=== PATIENT | female | born 1995 | race Caucasian/White ===

== ENCOUNTER 2018-05-20 20:55 | Emergency (ER) | payer MEDICAID, OTHER ==
[~2018-05-20] VITALS: Ht 162.6 cm; Wt 65.3 kg
[2018-05-20 21:08] VITALS: Ht 162.6 cm; Wt 65.3 kg
[2018-05-21] MEDS ORDERED: ACETAMINOPHEN 325 MG TAB PO STA (00:06)
[2018-05-21] MEDS ORDERED: SOD CHLORIDE 0.9% 1,000 ML IV STA (00:06)
[2018-05-21] MEDS ORDERED: CEFTRIAXONE 1 GM/50 ML (PMX) 50 ML IVPB ONE (03:00)
[2018-05-21] MEDS ORDERED: CEPH-443 PO (03:03)
--- NOTE | 2018-05-21 03:11 | ERD ---
ER Documentation Chief Complaint Chief Complaint vag bleed with clots; cramps; back pain today; 5wks HPI This is a 23-year-old female at approximately 5 weeks gestation presents to the ED complaining of worsening vaginal bleeding times 1 day. Patient's last menstrual cycle was April 15, 2018. She states she is currently 5 weeks . She reports worsening vaginal bleeding and blood clots. She reports lower suprapubic abdominal cramping as well. Denies any urinary symptoms. Denies any nausea, vomiting. Denies any fevers. Denies any back pain. No other symptoms. ROS All systems reviewed and are negative except as per history of present illness. Medications Home Meds Active Scripts Cephalexin* (Keflex*) 500 Mg Capsule, 500 MG PO BID for 7 Days, #14 CAP Prov:URMILA JEAN PA-C 05/21/18 Allergies Allergies: Coded Allergies: No Known Drug Allergies (Verified Allergy, Unknown, 05/20/18) PMhx/Soc Medical and Surgical Hx: pt denies Medical Hx, pt denies Surgical Hx History of Surgery: No Anesthesia Reaction: No Hx Neurological Disorder: No Hx Respiratory Disorders: No Hx Cardiac Disorders: No Hx Psychiatric Problems: No Hx Miscellaneous Medical Probl: No Hx Alcohol Use: No Hx Substance Use: No Hx Tobacco Use: No Smoking Status: Never smoker Physical Exam Vitals Vital Signs Date Temp Pulse Resp B/P (MAP) Pulse Ox O2 O2 Flow FiO2 Time Delivery Rate 05/20/18 100.7 99 20 129/69 99 21:08 (89) Physical Exam Const: No acute distress Head: Atraumatic Eyes: Normal Conjunctiva ENT: Normal External Ears, Nose and Mouth. Neck: Full range of motion. No meningismus. Resp: Clear to auscultation bilaterally Cardio: Regular rate and rhythm, no murmurs Abd: Soft, + mild suprapubic tenderness to palpation., non distended. No rebound, no guarding. Normal bowel sounds Skin: No petechiae or rashes Back: No midline or flank tenderness Ext: No cyanosis, or edema Neur: Awake and alert Psych: Normal Mood and Affect Result Diagram: 05/21/18 0021 05/21/18 0021 Results 24 hrs Laboratory Tests Test 05/21/18 00:21 White Blood Count 7.8 10^3/ul Red Blood Count 4.53 10^6/ul Hemoglobin 13.3 g/dl Hematocrit 38.9 % Mean Corpuscular Volume 85.9 fl Mean Corpuscular Hemoglobin 29.4 pg Mean Corpuscular Hemoglobin Concent 34.2 g/dl Red Cell Distribution Width 13.0 % Platelet Count 276 10^3/UL Mean Platelet Volume 10.2 fl Immature Granulocytes % 0.400 % Neutrophils % 60.2 % Lymphocytes % 31.8 % Monocytes % 5.1 % Eosinophils % 2.1 % Basophils % 0.4 % Nucleated Red Blood Cells % 0.0 /100WBC Immature Granulocytes # 0.030 10^3/ul Neutrophils # 4.7 10^3/ul Lymphocytes # 2.5 10^3/ul Monocytes # 0.4 10^3/ul Eosinophils # 0.2 10^3/ul Basophils # 0.0 10^3/ul Nucleated Red Blood Cells # 0.0 10^3/ul Urine Color RED Urine Clarity SLIGHTLY CLOUDY Urine pH 7.0 Urine Specific [place] 1.008 Urine Ketones NEGATIVE mg/dL Urine Nitrite NEGATIVE mg/dL Urine Bilirubin NEGATIVE mg/dL Urine Urobilinogen NEGATIVE mg/dL Urine Leukocyte Esterase 3+ Shane/ul Urine Microscopic RBC > 182 /HPF Urine Microscopic WBC 68 /HPF Urine Squamous Epithelial Cells FEW /HPF Urine Bacteria FEW /HPF Urine Hemoglobin 3+ mg/dL Urine Glucose NEGATIVE mg/dL Urine Total Protein 1+ mg/dl Sodium Level 141 mmol/L Potassium Level 4.2 mmol/L Chloride Level 105 mmol/L Carbon Dioxide Level 25 mmol/L Anion Gap 11 Blood Urea Nitrogen 6 mg/dl Creatinine 0.57 mg/dl Est Glomerular Filtrat Rate mL/min > 60 mL/min Glucose Level 105 mg/dl Calcium Level 10.8 mg/dl Total Bilirubin 0.6 mg/dl Direct Bilirubin 0.00 mg/dl Indirect Bilirubin 0.6 mg/dl Aspartate Amino Transf (AST/SGOT) 26 IU/L Alanine Aminotransferase (ALT/SGPT) 41 IU/L Alkaline Phosphatase 72 IU/L Total Protein 8.4 g/dl Albumin 4.8 g/dl Globulin 3.60 g/dl Albumin/Globulin Ratio 1.33 Beta HCG, Quantitative 3.1 mIU/ml Current Medications Medications Dose Sig/Ivan Start Time Status Last (Trade) Ordered Route PRN Stop Time Admin Dose Reason Admin Sodium 1,000 ml @ Q1H STAT 4/11/19 DC 05/21/18 Chloride 1,000 mls/hr IV 00:06 00:57 05/21/18 01:05 650 mg ONCE STAT 05/21/18 DC 05/21/18 Acetaminophen PO 00:06 00:57 (Tylenol 05/21/18 00:07 Tab) Ceftriaxone 50 ml @ ONCE ONCE 05/21/18 Sodium 100 mls/hr IVPB 03:00 05/21/18 03:29 Procedures/MDM LABS CBC: no e/o of systemic infection or severe anemia CMP: no e/o severe acidosis, alkalosis, renal failure, diabetic ketoacidosis, liver disease Urine: 3+ leukocytosis, materia, pyuria consistent with UTI. Ucx: pending beta hc.1 Blood type: a+ DIAGNOSTIC IMAGING: PROCEDURE: US OB including transvaginal scanning. CLINICAL INDICATION: patient with vaginal bleeding TECHNIQUE: Transabdominal and transvaginal views of the pelvis are available for review. Transvaginal scanning was needed for better evaluation of the endometrial stripe and endometrial contents as well as improved evaluation of the adnexa. COMPARISON: No prior studies are available for comparison. FINDINGS: The endometrial stripe measures 5.7 mm in diameter. No intrauterine gestational sac is seen. The right ovary measures 3.4 x 1.7 x 2.1 cm and the left ovary measures 2.7 x 1.4 x 1.8 cm. No ovarian cysts or masses are seen. Color and pulsed wave Doppler flow both ovaries was obtained. A small amount of free fluid was seen in the cul-de-sac. IMPRESSION: No intrauterine gestational sac is seen. Correlate with beta HCG level. Ectopic is not excluded. Small amount of free fluid. ED COURSE: The patient was given IV fluids, Zofran, IV Rocephin The medication was well tolerated and the patient had market improvement in symptoms. The patient remained stable throughout ED course. MEDICAL DECISION MAKING: Pt presents with vaginal bleeding in first trimester. The differential diagnosis includes threatened , incomplete/complete , missed , ectopic and less likely gestational trophoblastic disease and choriocarcinoma. Patient has a fever here, remaining vital signs are normal. Labs without any signs of dehydration or significant anemia. US as above showed no intrauterine gestational sac, with the beta hCG of 3.1. Patient likely had a spontaneous . I discussed results with pt. She was given a copy of her results and told to follow up with customer advisor in 48 hours. UA as above shows UTI. She was given 1 g of IV Rocephin here and discharged home with oral antibiotics. Patient shows no signs of sepsis or urosepsis. Strict return precautions discussed. PRESCRIPTIONS: Keflex SPECIALIST FOLLOW UP RECOMMENDED: None Patient has been advised to follow up with primary care in 1-2 days. Departure Diagnosis: Primary Impression: Spontaneous Additional Impression: UTI (urinary tract infection) Urinary tract infection type: acute cystitis Hematuria presence: without hematuria Qualified Codes: N30.00 - Acute cystitis without hematuria Condition: Stable Patient Instructions: Miscarriage, Spontaneous (Completed) Referrals: [facility] YOU HAVE RECEIVED A MEDICAL SCREENING EXAM AND THE RESULTS INDICATE THAT YOU DO NOT HAVE A CONDITION THAT REQUIRES URGENT TREATMENT IN THE EMERGENCY DEPARTMENT. FURTHER EVALUATION AND TREATMENT OF YOUR CONDITION CAN WAIT UNTIL YOU ARE SEEN IN YOUR DOCTORS OFFICE WITHIN THE NEXT 1-2 DAYS. IT IS YOUR RESPONSIBILITY TO MAKE AN APPOINTMENT FOR FOLOW-UP CARE. IF YOU HAVE A PRIMARY DOCTOR --you should call your primary doctor and schedule an appointment IF YOU DO NOT HAVE A PRIMARY DOCTOR YOU CAN CALL OUR PHYSICIAN REFERRAL HOTLINE AT IF YOU CAN NOT AFFORD TO SEE A PHYSICIAN YOU CAN CHOSE FROM THE FOLLOWING [facility] [address] [facility]. [facility] [address] [facility] [facility] [address] [facility] [facility] [address] [facility] [facility] [address] [facility]. [facility]. [address] [facility]. [facility] YOU HAVE RECEIVED A MEDICAL SCREENING EXAM AND THE RESULTS INDICATE THAT YOU DO NOT HAVE A CONDITION THAT REQUIRES URGENT TREATMENT IN THE EMERGENCY DEPARTMENT. FURTHER EVALUATION AND TREATMENT OF YOUR CONDITION CAN WAIT UNTIL YOU ARE SEEN IN YOUR DOCTORS OFFICE WITHIN THE NEXT 1-2 DAYS. IT IS YOUR RESPONSIBILITY TO MAKE AN APPOINTMENT FOR FOLOW-UP CARE. IF YOU HAVE A PRIMARY DOCTOR --you should call your primary doctor and schedule and appointment IF YOU DO NOT HAVE A PRIMARY DOCTOR YOU CAN CALL OUR PHYSICIAN REFERRAL HOTLINE AT . IF YOU CAN NOT AFFORD TO SEE A PHYSICIAN YOU CAN CHOSE FROM THE FOLLOWING [facility] INSTITUTIONS: [facility] [address] [place] [address] [facility], [place] [address] [place] [address] [facility] [address] [place] [address] [facility] URGENT CARE/SPECIALTIES Additional Instructions: Please see your PROPERTY PRESERVATION SPECIALIST in 2 days. Take the copies of your labs and ultrasound with the. He will antibiotics for the next 7 days. Return here for any new or worsening symptoms. URMILA JEAN PA-C May 21, 2018 03:11
[2018-05-21 03:57] VITALS: BP 106/53; PULSE 68; RESP 18
== END 2018-05-21 03:58 | disposition home or self-care (01) ==
LOC: FTE 20:55
DX: O03.9 Complete or unspecified spontaneous abortion without complication (principal); O23.41 Unspecified infection of urinary tract in pregnancy, first trimester
CPT/HCPCS: 36415; 76801; 76817; 80053; 81001; 84702; 85025; 86900; 86901; 87086; 96374; J0696; J7030; Z7502; Z7610